=== PATIENT | female | born 1950 | race Caucasian/White ===

== ENCOUNTER → 2016-07-01 | Outpatient (CLI) | payer OTHER ==
--- NOTE | 2016-07-01 19:19 | MA ---
Screening Digital Mammogram Clinical Indications: Routine screening. Technique: Standard cephalocaudal and mediolateral oblique projections are obtained. This examinati on is processed by the [employer] computer-aided detection system. Comparison: June 20, 2015, May 24, 2014, April 01, 2013 Breast density: 2; 25 to 50%. Findings: CAD was reviewed. On the left CC mammogram, there is a new asymmetric opacity laterally. Th is could represent a developing mass or superimposed fibroglandular tissue. For further evaluation, r ecommend spot left breast CC mammogram along with rolled CC views. The right breast appears mammographically benign and unchanged. Impression: Requires additional imaging evaluation, left breast. BI-RADS 0. Recommendation: Additional mammographic views, left breast, as above. [facility] will send a result letter to the patient. Negative mammography should not preclude additional workup of a clinically suspicious finding. The patient's information is entered into a reminder system with a target due date for her next mammo gram.
== END ==
LOC: BMCIMAGING 08:40
DX: Z12.31 Encounter for screening mammogram for malignant neoplasm of breast (principal); R92.8 Other abnormal and inconclusive findings on diagnostic imaging of breast
CPT/HCPCS: G0202

== ENCOUNTER → 2016-07-08 | Outpatient (CLI) | payer OTHER ==
--- NOTE | 2016-07-08 11:11 | MA ---
Diagnostic Digital Mammogram Left Breast With iCAD Analysis Reason for examination: Evaluate possible developing nodular asymmetry in the anterior outer left olivia ast on the craniocaudal view from the screening study July 01, 2016. Technique: Craniocaudal spot compression as well as rolled medial and lateral lateral craniocaudal vi ews are obtained. Also, a true lateral is performed. The examination is processed by the iCAD compute r-aided detection system. Findings: The abnormality does not persist on diagnostic evaluation and it was probably related to kruse perimposition of normal glandular elements on the screening study. Impression: Negative diagnostic mammography. BI-RADS: 1. Recommendation: Resume routine mammographic screening in one year as long as physical examination is negative. A verbal report was given to the patient. [facility] with send a result letter.
== END ==
LOC: FIMAGING 10:40
PROVIDERS: ATTEND Internal Medicine
DX: R92.8 Other abnormal and inconclusive findings on diagnostic imaging of breast (principal)
CPT/HCPCS: G0206

== ENCOUNTER → 2017-07-24 | Outpatient (CLI) | payer OTHER, MEDICARE | LOC: FIMAGING 10:36 | PROVIDERS: ATTEND Internal Medicine | DX: Z12.31 Encounter for screening mammogram for malignant neoplasm of breast (principal) ==

== ENCOUNTER → 2018-07-29 | Outpatient (CLI) | payer OTHER, MEDICARE | LOC: FIMAGING 09:27 | PROVIDERS: ATTEND Internal Medicine | DX: Z12.31 Encounter for screening mammogram for malignant neoplasm of breast (principal) ==